=== PATIENT | male | born 1995 | race African-American/Black ===

== ENCOUNTER 2022-08-10 10:00 | Emergency (ER) | payer SELFPAY ==
[~2022-08-10] VITALS: Ht 182.9 cm; Wt 90.0 kg
[2022-08-10 10:17] VITALS: BP 116/71
[2022-08-10] MEDS ORDERED: DOXY100C5 MT (12:48)
[2022-08-10] MEDS ORDERED: DOXYCYCLINE HYCLATE 100MG CAPSULE PO ONE (13:00)
[2022-08-10] MEDS ORDERED: CEFTRIAXONE SODIUM 500 MG/VIAL IM ONE (13:00)
== END 2022-08-10 13:31 | disposition home or self-care (01) ==
LOC: ER 11:30
DX: A64 Unspecified sexually transmitted disease (principal)
CPT/HCPCS: 96372; 99283; J0696